=== PATIENT | female | born 1990 | race Caucasian/White ===

== ENCOUNTER 2020-02-26 11:34 | Emergency (ER) | payer OTHER, SELFPAY ==
--- NOTE | ~2020-02-26 | US_ITS ---
EXAMINATION: US OB <=14 wk fetus w TV EXAM DATE: 02/26/2020 12:51 INDICATION: Abdominal cramping for 3 days. . 1st trimester. TECHNIQUE: Pelvic obstetrical transabdominal and transvaginal sonogram was performed by a technologi . There are multiple grayscale and Doppler images available for interpretation. There are no og ier studies of this gestation for comparison. FINDINGS: Uterus measures 8.6 x 6.5 x 4.5 cm. There is tiny anechoic endometrial region which could b e early gestation sac with mean sac diameter 2 mm corresponding to estimated gestational age of 4 wee ks 5 days. No pole or yolk sac identified at this time. There is no sonographic evidence of sub chorionic hemorrhage. The ovaries are morphologically normal. IMPRESSION: Tiny anechoic endometrial region could be early gestation sac. Reviewed, dictated and finalized at location B.
[2020-02-26 11:53] VITALS: BP 126/79; PULSE 120; RESP 18; TEMP 36.8; O2SAT 96
--- NOTE | 2020-02-26 12:07 | ED.ABDPAIN ---
HPI - Abdominal Pain General Chief Complaint: Abdominal Pain Stated Complaint: abd cramping; 5 wks preg Time Seen by Provider: 02/26/20 11:50 Source: patient Mode of arrival: ambulatory Limitations: no limitations History of Present Illness HPI narrative: Patient is a 29-year-old female G8 para 4 who presents to the emergency department for evaluation of abdominal pain and pelvic cramping. Patient reports she is approximately 5 weeks by last menstrual period and positive at home test. Patient states her last successful was in 2017 and she has had 2 miscarriages, spontaneous, since that time. Patient had formerly followed with an PROGRAM REP in [place], but is transitioning her care to Dr. Walker. Patient reports pain in the lower abdomen that is cramping in nature, at times sharp and has been present for 72 hours and worsening. Patient states the pain radiates into her back which is abnormal for her. She denies chest pain or shortness of breath. No fever, cough or cold symptoms. No vaginal bleeding or vaginal discharge. No recent intercourse. Patient denies any hematuria or dysuria. Related Data Allergies Allergy/AdvReac Type Severity Reaction Status Date / Time No Known Allergies Allergy Verified 02/26/20 12:41 Review of Systems Review of Systems: Narrative: CONSTITUTIONAL: Denies fever, chills, or sweats. CARDIOVASCULAR: Denies chest pain, palpitations, or edema. RESPIRATORY: Denies cough or dyspnea. GASTROINTESTINAL: Reports pelvic pain, denies nausea or vomiting GENITOURINARY: Denies dysuria or hematuria. SKIN: Denies rash or itching. MUSCULOSKELETAL: Reports right-sided back pain, denies joint pain, or myalgia. NEUROLOGIC: Denies headache, numbness, or weakness. [facility] Past Medical History Medical History (Updated 02/26/20 @ 14:47 by Victoria Nichols MD) No pertinent past medical history Surgical History Surgical History (Updated 02/26/20 @ 12:09 by Victoria Nichols MD) Delivery by section Hx of cholecystectomy Social History Social History (Updated 02/26/20 @ 12:10 by Victoria Nichols MD) Smoking status: Never smoker Alcohol intake: never Substance use: never Living arrangements: with family Gender identity (if verbalized by the patient): Female Exam Narrative: Exam Narrative: GENERAL: Awake, alert, conversant HEAD: Normocephalic, atraumatic. EYES: PERRLA and EOMI. ENT: Nares clear, no rhinorrhea or epistaxis. Mucous membranes moist. NECK: Supple. CHEST: No respiratory distress, breathing even and non labored HEART: Regular rate, sinus rhythm ABDOMEN:Non distended, mild right middle quadrant tenderness, positive right flank tenderness and right lower quadrant tenderness, no guarding, negative Rovsing sign, no rebound or rigidity Pelvic exam: Labia majora and minora normal without lesions. Vagina without blood. No cervical motion tenderness. No adnexal tenderness or fullness bilaterally. Normal, mucoid discharge present. EXTREMITIES: Normal range of motion. No edema. SKIN: Warm, dry, no rash. NEURO:No focal deficits. Alert and oriented x3 Course Vital Signs Vital signs: Vital Signs Temperature 36.8 C 02/26/20 11:53 Pulse Rate 120 H 02/26/20 11:53 Respiratory Rate 18 02/26/20 11:53 Blood Pressure 126/79 02/26/20 11:53 Pulse Oximetry 96 02/26/20 11:53 Temperature 36.8 C 02/26/20 11:53 Pulse Rate 83 02/26/20 13:10 Respiratory Rate 18 02/26/20 13:10 Blood Pressure 127/70 02/26/20 13:10 Pulse Oximetry 98 02/26/20 13:10 MDM - Abdominal Pain MDM Narrative Medical decision making narrative: Patient presented for evaluation of abdominal pain in the setting of early . Patient without any vaginal bleeding. No dysuria or hematuria. At the time of initial assessment, ABCs are intact, vital signs are notable for tachycardia which had resolved at the time of assessment. Patient is in normal sinus rhythm when I a
[2020-02-26 12:24] LABS: Basophils Percent Auto 0.4 % (0.2-1.2); Eosinophils Absolute Auto 0.1 K/mm3 (0-0.3); Eosinophils Percent Auto 1.2 % (0-4.4); Hematocrit 44.1 % (37.0-47.0); Hemoglobin 14.9 g/dL (12.0-15.0); Immature Granulocyte Absolute 0.04 K/mm3 (0.00-0.031); Immature Granulocyte Percent A 0.4 % (0-0.5); Lymphocytes Absolute Auto 2.19 K/mm3 (0.9-3.2); Lymphocytes Percent Auto 22.7 % (18.3-44.2); Mean Corpuscular HGB Conc 33.8 g/dl (32-36); Mean Corpuscular Hemoglobin 29.5 pg (26-34); Mean Corpuscular Volume 87.3 fl (80-100); Mean Platelet Volume 10.6 fl (7.4-10.4); Monocytes Absolute Auto 0.6 K/mm3 (0.1-0.6); Monocytes Percent Auto 6.3 % (2.6-8.5); Neutrophils Absolute Auto 6.6 K/mm3 (1.3-6.7); Platelet Count Result 244 k/mm3 (150-375); Red Blood Count 5.05 M/mm3 (4.2-5.4); White Blood Count 9.6 K/mm3 (4.5-10.0)
[2020-02-26 12:27] LABS: Add Urine Microscopic? NO; Appearance Urine Clear (Clear); Bilirubin Urine Negative (Negative); Blood Urine Negative (Negative); Color Urine Straw (Yellow); Glucose Urine UA Negative (Negative); Ketones Urine Negative (Negative); Leukocyte Esterase Ur Negative LEU/UL (Negative); Nitrate Urine Negative (Negative); Protein Urine Negative (Negative); Urobilinogen Urine Negative mg/dL (<2.0)
[2020-02-26 12:38] LABS: Alanine Aminotransferase 10 U/L (4-35); Albumin Level 4.6 g/dL (3.5-5.1); Alkaline Phosphatase 80 U/L (38-126); Aspartate Amino Transferase 20 U/L (14-36); Bilirubin,Total 0.4 mg/dL (0.2-1.3); Blood Urea Nitrogen 9 mg/dL (7-17); Calcium 9.4 mg/dL (8.4-10.2); Carbon Dioxide 24 mmol/L (22-30); Chloride 107 mmol/L (98-107); Estimated CRCL calculation 159 ml/min; Estimated Glomerular Filt Rate > 60; Glucose 98 mg/dL (65-105); Lipase 51 U/L (23-300); Potassium 3.7 mmol/L (3.4-5.0); Sodium 136 mmol/L (137-145)
--- NOTE | 2020-02-26 12:38 | PC.NURSE ---
Pt in US
[2020-02-26 12:45] LABS: Specific Grav Ur 1.004 (1.001-1.035)
[2020-02-26] MEDS: SODIUM CHLORIDE 0.9% IV 1,000 ML 999 ML IV CONT (13:07)
[2020-02-26 13:10] VITALS: BP 127/70; PULSE 83; RESP 18; O2SAT 98
[2020-02-26 14:58] VITALS: BP 106/61; PULSE 85; RESP 18; O2SAT 96
== END 2020-02-26 14:59 | disposition home or self-care (01) ==
PROVIDERS: Emergency Provider Emergency Medicine
DX: O26.891 Other specified pregnancy related conditions, first trimester (principal); R10.2 Pelvic and perineal pain; Z3A.01 Less than 8 weeks gestation of pregnancy
CPT/HCPCS: 36415; 76801; 76817; 80053; 81003; 81025; 83690; 84702; 85025; 85461; 87070; 87491; 87591; 87808; 96360; 99284; A9270; J7030

== ENCOUNTER 2020-08-08 12:03 | Observation (INO) | payer OTHER, SELFPAY ==
[2020-08-08] VITALS (25 sets, daily range): BP systolic 110–130; BP diastolic 57–70; PULSE 84–122; O2SAT 97–100
--- NOTE | 2020-08-08 12:30 | OBADM ---
This patient, Madelin Harrison, admitted to the OB room OB Post 111 for observation. Patient/family oriented to hospital policies and general routines including ID bracelet, bed and alarms, visiting hours, pain management, procedures, bathroom and other care routines, personal items, smoking policy, room service/diet, and visiting hours. Patient/Family are encouraged to report perceived risks to care and to ask questions if they do not understand what they are told or what they should do.
[2020-08-08 12:57] LABS: Add Urine Microscopic? NO; Appearance Urine Clear (Clear); Bilirubin Urine Negative (Negative); Blood Urine Negative (Negative); Color Urine Yellow (Yellow); Glucose Urine UA Negative (Negative); Ketones Urine Negative (Negative); Leukocyte Esterase Ur Negative LEU/UL (Negative); Nitrate Urine Negative (Negative); Protein Urine Negative (Negative); Specific Grav Ur 1.006 (1.001-1.035); Urobilinogen Urine Negative mg/dL (<2.0)
[2020-08-08] MEDS: TERBUTALINE SULFATE 1 MG/ML VIAL 0.25 MG SUB-Q ×2 (13:18→13:45)
[2020-08-08 13:52] LABS: Fetal Fibronectin Negative
--- NOTE | 2020-08-31 10:59 | P.PNOB_ITS ---
OB - Triage/Final Diagnosis Evaluation Laboratory results: Laboratory Tests 08/08/20 08/08/20 12:35 13:14 Urine Color Yellow Urine Appearance Clear Urine pH 7.0 Ur Specific [place] 1.006 Urine Protein Negative Urine Glucose (UA) Negative Urine Ketones Negative Ur Blood (Man) Negative Urine Nitrate Negative Urine Bilirubin Negative Urine Urobilinogen Negative Leukocyte Esterase Rfl Negative Fibronectin Negative Final Diagnosis (1) False labor: Code(s): O47.9 - False labor, unspecified Status: Acute
== END 2020-08-08 14:55 | disposition home or self-care (01) ==
PROVIDERS: Advanced Practice Midwife; Admitting Provider Obstetrics & Gynecology; Visit Provider Obstetrics & Gynecology
DX: O47.03 False labor before 37 completed weeks of gestation, third trimester (principal); Z3A.28 28 weeks gestation of pregnancy
CPT/HCPCS: 81003; 82731; 96372; G0378; G0379; J3105

== ENCOUNTER 2020-08-29 11:01 | Outpatient (CLI) | payer OTHER, SELFPAY ==
[2020-08-29 11:47] VITALS: BP 124/73; PULSE 110
[2020-08-29 12:00] VITALS: BP 124/85; PULSE 116
[2020-08-29 12:11] LABS: Basophils Percent Auto 0.1 % (0.2-1.2); Eosinophils Absolute Auto 0.1 K/mm3 (0-0.3); Eosinophils Percent Auto 0.7 % (0-4.4); Hematocrit 36.3 % (37.0-47.0); Hemoglobin 12.5 g/dL (12.0-15.0); Immature Granulocyte Absolute 0.08 K/mm3 (0.00-0.031); Immature Granulocyte Percent A 0.6 % (0-0.5); Lymphocytes Absolute Auto 1.98 K/mm3 (0.9-3.2); Lymphocytes Percent Auto 14.3 % (18.3-44.2); Mean Corpuscular HGB Conc 34.4 g/dl (32-36); Mean Corpuscular Hemoglobin 29.8 pg (26-34); Mean Corpuscular Volume 86.6 fl (80-100); Mean Platelet Volume 10.5 fl (7.4-10.4); Monocytes Absolute Auto 0.6 K/mm3 (0.1-0.6); Monocytes Percent Auto 4.3 % (2.6-8.5); Platelet Count Result 238 k/mm3 (150-375); Red Blood Count 4.19 M/mm3 (4.2-5.4); Red Cell Distribution Width 12.8 % (11.5-14.5); White Blood Count 13.8 K/mm3 (4.5-10.0)
[2020-08-29 12:14] LABS: Add Urine Microscopic? NO; Appearance Urine Clear (Clear); Bilirubin Urine Negative (Negative); Blood Urine Negative (Negative); Color Urine Yellow (Yellow); Glucose Urine UA Negative (Negative); Ketones Urine Negative (Negative); Leukocyte Esterase Ur Negative LEU/UL (NEGATIVE); Nitrate Urine Negative (Negative); Protein Urine Negative (Negative); Urobilinogen Urine Negative mg/dL (<2.0)
[2020-08-29 12:15] VITALS: BP 103/54; PULSE 106
[2020-08-29 12:23] LABS: Creatinine Urine 53.4 mg/dL; Total Protein Urine Random 12 mg/dL; Ur Ttl Prot Creatinine Ratio 0.22 mg/mg (0-0.20)
[2020-08-29 12:25] LABS: Alanine Aminotransferase 9 U/L (4-35); Albumin Level 3.5 g/dL (3.5-5.1); Alkaline Phosphatase 105 U/L (38-126); Anion Gap 9 mmol/L (8-16); Aspartate Amino Transferase 15 U/L (14-36); Bilirubin,Total 0.3 mg/dL (0.2-1.3); Blood Urea Nitrogen 5 mg/dL (7-17); Carbon Dioxide 19 mmol/L (22-30); Chloride 107 mmol/L (98-107); Estimated Glomerular Filt Rate > 60; Glucose 125 mg/dL (65-105); Potassium 3.6 mmol/L (3.4-5.0); Sodium 135 mmol/L (137-145); Uric Acid 3.6 mg/dL (2.5-7.5)
[2020-08-29 12:30] VITALS: BP 108/60; PULSE 104
[2020-08-29 12:45] VITALS: BP 102/53; PULSE 97
[2020-08-29 13:01] VITALS: BP 125/68; PULSE 96
--- NOTE | 2020-08-29 13:05 | PC.NURSE ---
Called Lanny Oconnell CNM with pt status. Informed of lab results and BPs. Pt complaining of right upper quadrant pain, headache, and seeing spots. Orders received for pain meds and may D/C if headache is better.
== END 2020-08-29 13:50 | disposition home or self-care (01) ==
LOC: ANHOBOP 11:06 → ANHOBPP 11:06
PROVIDERS: Advanced Practice Midwife; Visit Provider Obstetrics & Gynecology
DX: R42 Dizziness and giddiness (principal); O13.9 Gestational [pregnancy-induced] hypertension without significant proteinuria, unspecified trimester; Z3A.00 Weeks of gestation of pregnancy not specified
CPT/HCPCS: 36415; 59025; 80053; 81003; 82570; 84156; 84550; 85025; 87086; 99199; A9270